=== PATIENT | female | born 1955 | race Caucasian/White ===

== ENCOUNTER 2019-02-12 00:05 | Inpatient (IN) | payer BC, MEDICARE ==
[~2019-02-12] VITALS: Ht 170.2 cm; Wt 57.2 kg
[2019-02-12 15:10] VITALS: BP 127/69
[2019-02-12] MEDS ORDERED: ASPI81TA50 PO (15:52)
[2019-02-12] MEDS ORDERED: ESCITALOPRAM OX20 MG PO (15:52)
[2019-02-12] MEDS ORDERED: DIAZ5ORA PO (15:52)
[2019-02-12] MEDS ORDERED: OLAN20TA10 PO (15:52)
[2019-02-12] MEDS ORDERED: DONE10TA7 PO (15:52)
[2019-02-12] MEDS ORDERED: MEMA10TA PO (15:52)
[2019-02-12] MEDS ORDERED: METHYL SALICYLATE/MENTHOL TOPICAL OINTMENT 57GM TUBE. TP PRN (16:00)
[2019-02-12] MEDS ORDERED: MAGNESIUM HYDROXIDE 2,400 MG/30 ML ORAL.SUSP. PO PRN (16:00)
[2019-02-12] MEDS ORDERED: MAG HYDROX/AL HYDROX/SIMETH 30 ML ORAL.SUSP PO PRN (16:00)
[2019-02-12] MEDS ORDERED: diazePAM 2 MG TABLET PO PRN (16:00)
[2019-02-12] MEDS ORDERED: FLU VAX QS 2019-20 (36MOS+)/PF 0.5 ML SYRINGE. VAX IM ONE (16:15)
--- NOTE | 2019-02-12 17:33 | EKG ---
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
[2019-02-12] MEDS: MEMANTINE 10 MG TABLET. PO SCH (20:08)
[2019-02-12] MEDS: DONEPEZIL HCL 10 MG TABLET PO SCH (20:08)
--- NOTE | 2019-02-12 21:45 | PDOC ---
Exam Note: Romeo Note: Please also refer to the separate dictated note~for this date of service dictated separately. Discussed the patient with Nursing staff reviewed the chart.~Reviewed interim history and current functioning. Reviewed vital signs,~Labs/ Radiology~and current medications noted below. Continue current treatment with the changes noted in the dictated addendum note Assessment: Vital Signs/I&O: Vital Signs Date Time Temp Pulse Resp B/P (MAP) Pulse Ox O2 Delivery O2 Flow Rate FiO2 02/12/19 15:10 98.8 78 18 127/69 (88) 96 Current Medications: Meds: Current Medications Medications (Trade) Dose Ordered Sig/Kenia Route PRN Reason Start Time Stop Time Status Last Admin Dose Admin Donepezil HCl (Aricept) 10 mg HS PO 02/12/19 21:00 02/12/19 20:08 Memantine (Namenda) 10 mg BID PO 02/12/19 21:00 02/12/19 20:08 Olanzapine (ZyPREXA ZYDIS) 20 mg QHS PO 02/12/19 21:00 02/12/19 20:08 Influenza Virus Vaccine Quadrival (Afluria Quad 2019-20 (3yr Up) Syringe) 0.5 ml ONCE ONCE VAX IM 02/12/19 16:15 02/12/19 16:40 DC 02/12/19 18:17 I have reviewed the current psychotropics carefully including drug interactions. Risk benefit ratio favors no change other than as noted in my dictated progress note. Diagnosis: Problems: (1) Anxiety disorder (2) Dementia in Alzheimer's disease with delusions (3) Dementia in Alzheimer's disease with depression (4) Dementia, vascular, with delusions (5) Dementia, vascular, with depression (6) Impulse control disorder JERI MAE MD Feb 12, 2019 21:45
[2019-02-13 05:58] VITALS: BP 92/58
[2019-02-13 07:09] LABS: ALBUMIN 3.2 g/dL (3.4-5.0); CALCIUM 8.7 mg/dL (8.5-10.1); CREATININE 0.8 mg/dL (0.6-1.0); GFR 72.7; POTASSIUM 3.4 mmol/L (3.5-5.1); TOTAL BILIRUBIN 0.5 mg/dL (0.2-1.0); TOTAL PROTEIN 6.3 g/dL (6.4-8.2)
[2019-02-13 07:10] LABS: BASO % 0 % (0-3); EOS % 0 % (0-3); HEMATOCRIT 34.7 % (36.0-47.0); HEMOGLOBIN 11.7 g/dL (12.0-15.5); LYMPH # 0.8 x10^3/uL (1.0-4.8); LYMPH % 17 % (24-48); MEAN CORPUSCULAR HEMOGLOBIN 31 pg (25-35); MEAN CORPUSCULAR HGB CONC 34 g/dL (31-37); MEAN CORPUSCULAR VOLUME 92 fL (79-100); MONO # 0.4 x10^3/uL (0.0-1.1); MONO % 10 % (0-9); NEUT # 3.2 x10^3uL (1.8-7.7); NEUT % 72 % (31-73); PLATELET COUNT 180 x10^3/uL (140-400); RED BLOOD COUNT 3.76 x10^6/uL (3.50-5.40); RED CELL DISTRIBUTION WIDTH 13.2 % (11.5-14.5); WHITE BLOOD COUNT 4.4 x10^3/uL (4.0-11.0)
[2019-02-13] MEDS: ASPIRIN ENTERIC COATED 81 MG TABLET.DR. PO SCH (08:01)
[2019-02-13] MEDS: MEMANTINE 10 MG TABLET. PO SCH ×2 (08:01→19:58)
[2019-02-13] MEDS ORDERED: CITALOPRAM 20 MG TABLET. PO SCH (09:00)
[2019-02-13 13:31] LABS: THYROID STIM HORMONE (TSH) 1.616 uIU/mL (0.358-3.740)
--- NOTE | 2019-02-13 13:41 | PN ---
DATE: PROGRESS NOTE This late entry, 02/12/2019, covers elements not covered in my initial note. IDENTIFYING DATA: The patient is a 63-year-old female referred to us from the Emergency Room at [facility], where she presented around midnight of the previous night and I was called at midnight to evaluate her for admission to our unit. She has a history of early onset dementia, lives at home with her , has had increasing agitation against her who is her primary caregiver. She has been irritable, constantly yelling, having marked insomnia, not eating or drinking, extremely restless and has failed outpatient psychiatric interventions. She is a danger to herself due to not eating and drinking and the behaviors that were totally out of control and having failed outpatient psychiatric interventions. She is referred for inpatient psychiatric stabilization. CHIEF COMPLAINT: "No." HISTORY OF PRESENT ILLNESS: The patient has a history of dementia, probably Alzheimer's with delusion, depression. She has been living at home with her and he has tried to maintain her at home until recently. As noted, she has appeared more depressed, psychotic, agitated, aggressive, disruptive, not eating, drinking. No clear history of bipolar disorder or homicidal ideation. She has a passive suicidal ideation noted above. PAST PSYCHIATRIC HISTORY: As above. The patient was diagnosed with Alzheimer dementia in 2010. MEDICAL HISTORY: Positive for recurrent UTIs and UA was positive in the ER, given 1 dose of Monurol. She has a history of dehydration and electrolyte imbalance. The patient was on hospice care, but that was recently discontinued. The patient has been started on 2 liters normal saline. DIET: Regular finger foods. ALLERGIES: Negative. Ambulates with total care in a ____ FAMILY HISTORY: Noncontributory. SOCIAL HISTORY: No history of alcohol, drug abuse, physical, sexual or elder abuse. She is not known to be a perpetrator. REACTION TO HOSPITALIZATION: The patient oblivious of this. ASSETS: Supportive . CURRENT PSYCHOTROPICS: Namenda 10 mg b.i.d., Lexapro 20 mg a day, Aricept 10 mg at bedtime, Zyprexa 20 mg at bedtime, Valium p.r.n. MENTAL STATUS EXAMINATION: The patient was seen individually evening of 02/12/2019. She is lying in bed, anxious, restless, oriented to herself, not very verbal. Insight, judgment, recent and remote memory, attention, concentration, fund of knowledge poor, consistent with her diagnosis. IMPRESSION: Major neurocognitive disorder, Alzheimer's with delusion, depression, behavioral disturbance; anxiety disorder, unspecified; impulse control disorder, unspecified. Rest as above. PLAN: Admit to Geropsychiatry Unit at [facility]. I will see the patient daily individually from a psychiatric standpoint. Medical followup per Dr. Mukherjee. We will continue the patient on her current psychotropics. Observe baseline, then adjust as clinically indicated. Estimated length of stay 10-12 days. DISPOSITION PLANS: Back home or perhaps more appropriately to penitentiary setting. JERI MAE MD DR: GERMAN/darwin JOB#: [id number] / [id number]
--- NOTE | 2019-02-13 15:38 | PDOC2 ---
CONSULT Date of Admission DATE: 02/13/19 TIME: 15:34 Reason for Consult: medical management History of Present Illness The patient is a 63-year-old female with early onset Alzheimer's dementia, depression. She has history of UTIs. She comes to the senior behavioral unit after being transferred from [facility]. She lives with her who is her primary caregiver. Apparently the patient had been more aggressive, irritable, confused, with insomnia, not eating or drinking well, mostly history is obtained from prior records as the patient cannot provide any history. Apparently the patient had been hospice at home. This will need to be revisited with the Past Medical History Alzheimer's disease, depression, recurrent UTIs Social History the patient is , no history of smoking/drinking could be provided Current Medications Current Medications Donepezil HCl (Aricept) 10 mg HS PO Last administered on 02/12/19at 20:08; Start 02/12/19 at 21:00 Memantine (Namenda) 10 mg BID PO Last administered on 02/13/19at 08:01; Start 02/12/19 at 21:00 Diazepam (Valium) 4 mg PRN Q4HRS PRN PO ANXIETY; Start 02/12/19 at 16:00 Citalopram Hydrobromide (CeleXA) 40 mg DAILY PO Last administered on 02/13/19at 08:01; Start 02/13/19 at 09:00 Olanzapine (ZyPREXA ZYDIS) 20 mg QHS PO Last administered on 02/12/19at 20:08; Start 02/12/19 at 21:00 Aspirin (Aspirin Enteric Coated) 81 mg DAILY PO Last administered on 02/13/19at 08:01; Start 02/13/19 at 09:00 Acetaminophen (Tylenol) 650 mg PRN Q6HRS PRN PO PAIN / TEMP; Start 02/12/19 at 16:00 Multi-Ingredient Ointment (Analgesic [place]) 1 casimiro PRN QID PRN TP MUSCLE PAIN; Start 02/12/19 at 16:00 Al Hydroxide/Mg Hydroxide (Mylanta Plus Xs) 15 ml PRN AFTMEALHC PRN PO DYSPEPSIA; Start 02/12/19 at 16:00 Magnesium Hydroxide (Milk Of Magnesia) 2,400 mg PRN QHS PRN PO CONSTIPATION; Start 02/12/19 at 16:00 Influenza Virus Vaccine Quadrival (Afluria Quad 2019-20 (3yr Up) Syringe) 0.5 ml ONCE ONCE VAX IM Last administered on 02/12/19at 18:17; Start 02/12/19 at 16:15; Stop 02/12/19 at 16:40; Status DC Active Scripts Active Reported Diazepam Oral Conc (Diazepam) 5 Mg/1 Ml Oral.conc 4 Mg PO PRN Q6HRS PRN Olanzapine Odt (Olanzapine) 20 Mg Tab.rapdis 20 Mg PO HS Aspir-Low (Aspirin) 81 Mg Tablet.dr 1 Tab PO DAILY Donepezil Hcl 10 Mg Tablet 1 Tab PO HS Escitalopram Oxalate 20 Mg Tablet 1 Tab PO DAILY Namenda (Memantine Hcl) 10 Mg Tablet 1 Tab PO BID Allergies: Coded Allergies: No Known Drug Allergies (Unverified , 02/12/19) Review of System review of systems could not be provided due to her psychiatric illness Physical Exam Awake, completely confused, cannot answer even her name PERRLA, EOMI, appears slightly dry Regular rate and rhythm Clear to auscultation bilaterally Positive bowel sounds, nontender, nondistended Cranial nerves could not be tested at this time, appears to move all extremities however neurological exam was very limited No rashes No edema VITALS Vital Signs Date Time Temp Pulse Resp B/P (MAP) Pulse Ox O2 Delivery O2 Flow Rate FiO2 02/13/19 05:58 98.4 56 16 92/58 (69) 98 Labs Laboratory Tests Test 02/13/19 06:30 White Blood Count 4.4 x10^3/uL (4.0-11.0) Red Blood Count 3.76 x10^6/uL (3.50-5.40) Hemoglobin 11.7 g/dL (12.0-15.5) Hematocrit 34.7 % (36.0-47.0) Mean Corpuscular Volume 92 fL (79-100) Mean Corpuscular Hemoglobin 31 pg (25-35) Mean Corpuscular Hemoglobin Concent 34 g/dL (31-37) Red Cell Distribution Width 13.2 % (11.5-14.5) Platelet Count 180 x10^3/uL (140-400) Neutrophils (%) (Auto) 72 % (31-73) Lymphocytes (%) (Auto) 17 % (24-48) Monocytes (%) (Auto) 10 % (0-9) Eosinophils (%) (Auto) 0 % (0-3) Basophils (%) (Auto) 0 % (0-3) Neutrophils # (Auto) 3.2 x10^3uL (1.8-7.7) Lymphocytes # (Auto) 0.8 x10^3/uL (1.0-4.8) Monocytes # (Auto) 0.4 x10^3/uL (0.0-1.1) Eosinophils # (Auto) 0.0 x10^3/uL (0.0-0.7) Basophils # (Auto) 0.0 x10^3/uL (0.0-0.2) Sodium Level 144 mmol/L (136-145) Potassium Level 3.4 mmol/L (3.5-5.1) Chloride Level 108 mmol/L (98-107) Carbon Dioxide Level 27 mmol/L (21-32) Anion Gap 9 (6-14) Blood Urea Nitrogen 9 mg/dL (7-20) Creatinine 0.8 mg/dL (0.6-1.0) Estimated GFR (Cockcroft-Gault) 72.7 BUN/Creatinine Ratio 11 (6-20) Glucose Level 100 mg/dL (70-99) Calcium Level 8.7 mg/dL (8.5-10.1) Magnesium Level 2.0 mg/dL (1.8-2.4) Iron Level 29 ug/dL (50-170) Total Iron Binding Capacity 256 ug/dL (250-450) Iron Saturation 11 % (15-34) Total Bilirubin 0.5 mg/dL (0.2-1.0) Aspartate Amino Transf (AST/SGOT) 26 U/L (15-37) Alanine Aminotransferase (ALT/SGPT) 17 U/L (14-59) Alkaline Phosphatase 86 U/L (46-116) Total Protein 6.3 g/dL (6.4-8.2) Albumin 3.2 g/dL (3.4-5.0) Albumin/Globulin Ratio 1.0 (1.0-1.7) Triglycerides Level 54 mg/dL (0-150) Cholesterol Level 141 mg/dL (0-200) LDL Cholesterol, Calculated 91 mg/dL (0-100) VLDL Cholesterol, Calculated 10 mg/dL (0-40) Non-HDL Cholesterol Calculated 101 mg/dL (0-129) HDL Cholesterol 40 mg/dL (40-60) Cholesterol/HDL Ratio 3.0 25-Hydroxy Vitamin D Total 25.4 ng/mL (30-100) Thyroid Stimulating Hormone (TSH) 1.616 uIU/mL (0.358-3.740) Treponema pallidum Antibody Nonreactive (Nonreactive) Assessment/Plan Severe Alzheimer's dementia -Per primary team-psychiatry -Psychiatric medications per psychiatry -Ordered B12 level UTI- treated at [facility] with fosfomycin 1 -Await final results of urine culture Dysphagia due to anatomical/medical reasons versus psychiatric -Recommend speech evaluation -If family wants to be more aggressive, a CAT scan or MRI of the head might be needed -The patient may need a feeding tube Mild hypokalemia -Potassium chloride for replacement today Mild protein calorie malnutrition -Encourage oral intake Goals of CARE -Patient had been hospice at home, this will need to be revisited with the if the patient cannot take good oral intake MEGHAN DE LA CRUZ MD Feb 13, 2019 15:38
[2019-02-13 16:40] VITALS: BP 126/75
[2019-02-13 19:12] LABS: THYROXINE 6.3 ug/dL (4.5-12.0)
[2019-02-13] MEDS: MIRTAZAPINE 7.5 MG TABLET. PO SCH (19:58)
[2019-02-13] MEDS: DONEPEZIL HCL 10 MG TABLET PO SCH (19:58)
--- NOTE | 2019-02-13 22:18 | PDOC ---
Exam Note: Romeo Note: Please also refer to the separate dictated note~for this date of service dictated separately.~Patient seen individually. Discussed the patient with Nursing staff reviewed the chart.~Reviewed interim history and current functioning. Reviewed vital signs,~Labs/ Radiology~and current medications noted below. Continue current treatment with the changes noted in the dictated addendum note Assessment: Vital Signs/I&O: Vital Signs Date Time Temp Pulse Resp B/P (MAP) Pulse Ox O2 Delivery O2 Flow Rate FiO2 02/13/19 16:40 97.9 51 16 126/75 (92) 97 I & O 02/12/19 02/12/19 02/13/19 14:59 22:59 06:59 Intake Total 240 ml 0 ml Balance 240 ml 0 ml Labs: Laboratory Tests Test 02/13/19 06:30 White Blood Count 4.4 x10^3/uL (4.0-11.0) Red Blood Count 3.76 x10^6/uL (3.50-5.40) Hemoglobin 11.7 g/dL (12.0-15.5) L Hematocrit 34.7 % (36.0-47.0) L Mean Corpuscular Volume 92 fL (79-100) Mean Corpuscular Hemoglobin 31 pg (25-35) Mean Corpuscular Hemoglobin Concent 34 g/dL (31-37) Red Cell Distribution Width 13.2 % (11.5-14.5) Platelet Count 180 x10^3/uL (140-400) Neutrophils (%) (Auto) 72 % (31-73) Lymphocytes (%) (Auto) 17 % (24-48) L Monocytes (%) (Auto) 10 % (0-9) H Eosinophils (%) (Auto) 0 % (0-3) Basophils (%) (Auto) 0 % (0-3) Neutrophils # (Auto) 3.2 x10^3uL (1.8-7.7) Lymphocytes # (Auto) 0.8 x10^3/uL (1.0-4.8) L Monocytes # (Auto) 0.4 x10^3/uL (0.0-1.1) Eosinophils # (Auto) 0.0 x10^3/uL (0.0-0.7) Basophils # (Auto) 0.0 x10^3/uL (0.0-0.2) Sodium Level 144 mmol/L (136-145) Potassium Level 3.4 mmol/L (3.5-5.1) L Chloride Level 108 mmol/L (98-107) H Carbon Dioxide Level 27 mmol/L (21-32) Anion Gap 9 (6-14) Blood Urea Nitrogen 9 mg/dL (7-20) Creatinine 0.8 mg/dL (0.6-1.0) Estimated GFR (Cockcroft-Gault) 72.7 BUN/Creatinine Ratio 11 (6-20) Glucose Level 100 mg/dL (70-99) H Calcium Level 8.7 mg/dL (8.5-10.1) Magnesium Level 2.0 mg/dL (1.8-2.4) Iron Level 29 ug/dL (50-170) L Total Iron Binding Capacity 256 ug/dL (250-450) Iron Saturation 11 % (15-34) L Total Bilirubin 0.5 mg/dL (0.2-1.0) Aspartate Amino Transferase (AST) 26 U/L (15-37) Alanine Aminotransferase (ALT) 17 U/L (14-59) Alkaline Phosphatase 86 U/L (46-116) Total Protein 6.3 g/dL (6.4-8.2) L Albumin 3.2 g/dL (3.4-5.0) L Albumin/Globulin Ratio 1.0 (1.0-1.7) Triglycerides Level 54 mg/dL (0-150) Cholesterol Level 141 mg/dL (0-200) LDL Cholesterol, Calculated 91 mg/dL (0-100) VLDL Cholesterol, Calculated 10 mg/dL (0-40) Non-HDL Cholesterol Calculated 101 mg/dL (0-129) HDL Cholesterol 40 mg/dL (40-60) Cholesterol/HDL Ratio 3.0 25-Hydroxy Vitamin D Total 25.4 ng/mL (30-100) L Thyroid Stimulating Hormone (TSH) 1.616 uIU/mL (0.358-3.740) Thyroxine (T4) 6.3 ug/dL (4.5-12.0) Total Triiodothyronine (TT3) 91 ng/dL (71-180) Treponema pallidum Antibody Nonreactive (Nonreactive) Current Medications: Meds: Current Medications Medications (Trade) Dose Ordered Sig/Kenia Route PRN Reason Start Time Stop Time Status Last Admin Dose Admin Citalopram Hydrobromide (CeleXA) 40 mg DAILY PO 02/13/19 09:00 02/13/19 18:34 DC 02/13/19 08:01 Aspirin (Aspirin Enteric Coated) 81 mg DAILY PO 02/13/19 09:00 02/13/19 08:01 Olanzapine (ZyPREXA ZYDIS) 2.5 mg PRN Q2HR PRN PO PSYCHOSIS 02/13/19 16:00 02/13/19 18:09 Mirtazapine (Remeron) 7.5 mg QHS PO 02/13/19 21:00 02/13/19 19:58 I have reviewed the current psychotropics carefully including drug interactions. Risk benefit ratio favors no change other than as noted in my dictated progress note. Diagnosis: Problems: (1) Anxiety disorder (2) Dementia in Alzheimer's disease with delusions (3) Dementia in Alzheimer's disease with depression (4) Dementia, vascular, with delusions (5) Dementia, vascular, with depression (6) Impulse control disorder JERI MAE MD Feb 13, 2019 22:18
[2019-02-14 00:07] LABS: HEMOGLOBIN A1C 5.3 % (4.8-5.6)
[2019-02-14 05:59] VITALS: BP 126/79
[2019-02-14] MEDS: ASPIRIN ENTERIC COATED 81 MG TABLET.DR. PO SCH (08:34)
[2019-02-14] MEDS: MEMANTINE 10 MG TABLET. PO SCH ×2 (08:34→20:06)
[2019-02-14] MEDS: SERTRALINE 50 MG TABLET. PO SCH (08:36)
[2019-02-14] MEDS: ACETAMINOPHEN 325 MG TABLET PO PRN (11:14)
[2019-02-14 16:10] VITALS: BP 106/44
[2019-02-14] MEDS: DONEPEZIL HCL 10 MG TABLET PO SCH (20:06)
[2019-02-14] MEDS: MIRTAZAPINE 7.5 MG TABLET. PO SCH (20:06)
--- NOTE | 2019-02-14 21:32 | PDOC ---
Exam Note: Romeo Note: Please also refer to the separate dictated note~for this date of service dictated separately.~Patient seen individually. Discussed the patient with Nursing staff reviewed the chart.~Reviewed interim history and current functioning. Reviewed vital signs,~Labs/ Radiology~and current medications noted below. Continue current treatment with the changes noted in the dictated addendum note Assessment: Vital Signs/I&O: Vital Signs Date Time Temp Pulse Resp B/P (MAP) Pulse Ox O2 Delivery O2 Flow Rate FiO2 02/14/19 16:10 97.5 95 18 106/44 (64) 95 I & O 02/13/19 02/13/19 02/14/19 14:59 22:59 06:59 Intake Total 200 ml 60 ml Balance 200 ml 60 ml Current Medications: Meds: Current Medications Medications (Trade) Dose Ordered Sig/Kenia Route PRN Reason Start Time Stop Time Status Last Admin Dose Admin Sertraline HCl (Zoloft) 50 mg DAILY PO 02/14/19 09:00 02/14/19 08:36 I have reviewed the current psychotropics carefully including drug interactions. Risk benefit ratio favors no change other than as noted in my dictated progress note. Diagnosis: Problems: (1) Anxiety disorder (2) Dementia in Alzheimer's disease with delusions (3) Dementia in Alzheimer's disease with depression (4) Dementia, vascular, with delusions (5) Dementia, vascular, with depression (6) Impulse control disorder JERI MAE MD Feb 14, 2019 21:32
[2019-02-15 05:49] VITALS: BP 99/59
--- NOTE | 2019-02-15 06:42 | PN ---
DATE: 02/13/2019 PSYCHIATRIC PROGRESS NOTE This late entry, 02/13, covers elements not covered in my initial note. SUBJECTIVE: Per report from CHRIS Ibrahim, patient remains confused, slept 7 hours previous night. Oral intake is poor, ate nothing for lunch or breakfast. She has been speaking sing song, babbling and then intermittently screaming, hallucinating. REVIEW OF SYSTEMS: Ambulation impaired, lying in bed. No CV, , pulmonary, eye, ENT system symptoms on review. Reliability poor. MENTAL STATUS EXAM: Oriented to herself. Insight, judgment, recent and remote memory, attention, concentration, fund of knowledge poor, consistent with her diagnosis. IMPRESSION: Major neurocognitive disorder; Alzheimer, vascular with delusion; depression; behavioral disturbance; anxiety disorder, unspecified; impulse control disorder, unspecified; status post urinary tract infection. Rest unchanged. PLAN: We will go ahead and drop her Lexapro from 20 mg a day down to 10 mg a day. Stop the Valium p.r.n. Change the Zyprexa 20 mg at bedtime scheduled to Zyprexa 2.5 mg q. 2 hours p.r.n. psychosis, agitation, max 10 mg in 24 hours. Start Remeron 7.5 mg at bedtime in place of Zyprexa to help with her insomnia, anxiety and mood symptoms. We will make further changes as clinically indicated including considering Depakote as a mood stabilizer. MAN Lucio MAE MD DR: GERMAN/darwin JOB#: [id number] / [id number]
[2019-02-15] MEDS: SERTRALINE 50 MG TABLET. PO SCH (07:23)
[2019-02-15] MEDS: ASPIRIN ENTERIC COATED 81 MG TABLET.DR. PO SCH (07:23)
[2019-02-15] MEDS: MEMANTINE 10 MG TABLET. PO SCH ×2 (07:23→20:10)
[2019-02-15] MEDS: HYDROCORTISONE 2.5% TOPICAL OINTMENT 30GM TUBE. TP SCH ×2 (07:23→21:00)
[2019-02-15] MEDS: LIDOCAINE (700MG/PATCH) PATCH. TD SCH (08:49)
--- NOTE | 2019-02-15 14:33 | HP ---
ADMIT DATE: PROGRESS NOTE This late entry, 02/12/2019, covers elements not covered in my initial note. IDENTIFYING DATA: The patient is a 63-year-old female referred to us from the Emergency Room at [facility], where she presented around midnight of the previous night and I was called at midnight to evaluate her for admission to our unit. She has a history of early onset dementia, lives at home with her , has had increasing agitation against her who is her primary caregiver. She has been irritable, constantly yelling, having marked insomnia, not eating or drinking, extremely restless and has failed outpatient psychiatric interventions. She is a danger to herself due to not eating and drinking and the behaviors that were totally out of control and having failed outpatient psychiatric interventions. She is referred for inpatient psychiatric stabilization. CHIEF COMPLAINT: "No." HISTORY OF PRESENT ILLNESS: The patient has a history of dementia, probably Alzheimer's with delusion, depression. She has been living at home with her and he has tried to maintain her at home until recently. As noted, she has appeared more depressed, psychotic, agitated, aggressive, disruptive, not eating, drinking. No clear history of bipolar disorder or homicidal ideation. She has a passive suicidal ideation noted above. PAST PSYCHIATRIC HISTORY: As above. The patient was diagnosed with Alzheimer dementia in 2010. MEDICAL HISTORY: Positive for recurrent UTIs and UA was positive in the ER, given 1 dose of Monurol. She has a history of dehydration and electrolyte imbalance. The patient was on hospice care, but that was recently discontinued. The patient has been started on 2 liters normal saline. DIET: Regular finger foods. ALLERGIES: Negative. Ambulates with total care in a ____ FAMILY HISTORY: Noncontributory. SOCIAL HISTORY: No history of alcohol, drug abuse, physical, sexual or elder abuse. She is not known to be a perpetrator. REACTION TO HOSPITALIZATION: The patient oblivious of this. ASSETS: Supportive . CURRENT PSYCHOTROPICS: Namenda 10 mg b.i.d., Lexapro 20 mg a day, Aricept 10 mg at bedtime, Zyprexa 20 mg at bedtime, Valium p.r.n. MENTAL STATUS EXAMINATION: The patient was seen individually evening of 02/12/2019. She is lying in bed, anxious, restless, oriented to herself, not very verbal. Insight, judgment, recent and remote memory, attention, concentration, fund of knowledge poor, consistent with her diagnosis. IMPRESSION: Major neurocognitive disorder, Alzheimer's with delusion, depression, behavioral disturbance; anxiety disorder, unspecified; impulse control disorder, unspecified. Rest as above. PLAN: Admit to Geropsychiatry Unit at [facility]. I will see the patient daily individually from a psychiatric standpoint. Medical followup per Dr. Mukherjee. We will continue the patient on her current psychotropics. Observe baseline, then adjust as clinically indicated. Estimated length of stay 10-12 days. DISPOSITION PLANS: Back home or perhaps more appropriately to [place]. JERI MAE MD DR: GERMAN/nts JOB#: [id number] / [id number]
[2019-02-15 17:06] VITALS: BP 116/76
[2019-02-15 19:21] LABS: BACTERIA,URINE 0 /HPF (0-FEW); BILIRUBIN,URINE NEG (NEG); CLARITY,URINE HAZY; COLOR,URINE AMBER; GLUCOSE,URINE NEG (NEG); NITRITE,URINE POS (NEG); RBC,URINE 0 /HPF (0-2); SQUAMOUS EPITHELIAL CELL,UR OCC /LPF; UROBILINOGEN,URINE 2 mg/dL (0.2 mg/dL)
--- NOTE | 2019-02-15 19:50 | PN ---
DATE: SUBJECTIVE: The patient was ____ agitation against primary caregivers, irritability, yelling, insomnia, not eating and drinking, and restless. The patient was having severe pain to her shoulders, right and left with decreased range of motion, unable to lift them above the horizontal plane. She was noted to have a rash underneath her lip just above the chin area, probably some form of dermatitis. Other than that, the patient had no major complaints except for the pain in her shoulders. OBJECTIVE: VITAL SIGNS: Otherwise, blood pressure is 126/80, respiratory rate 24, pulse 90, afebrile. NEUROLOGIC: The patient was alert and just concerned with her pain that she was having in her shoulders. The patient's ____ was unremarkable there. 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 PLAN: The patient will be adjusted on her medications and hopefully get some relief to the pain in her shoulders as well as being treated for her dermatitis underneath her lower lip area. SLY HERNANDEZ MD DR: JOVANNA/darwin JOB#: [id number] / [id number]
[2019-02-15] MEDS: DONEPEZIL HCL 10 MG TABLET PO SCH (20:10)
[2019-02-15] MEDS: MIRTAZAPINE 7.5 MG TABLET. PO SCH (20:10)
--- NOTE | 2019-02-15 21:52 | PDOC ---
Exam Note: Romeo Note: Please also refer to the separate dictated note~for this date of service dictated separately.~Patient seen individually. Discussed the patient with Nursing staff reviewed the chart.~Reviewed interim history and current functioning. Reviewed vital signs,~Labs/ Radiology~and current medications noted below. Continue current treatment with the changes noted in the dictated addendum note Assessment: Vital Signs/I&O: Vital Signs Date Time Temp Pulse Resp B/P (MAP) Pulse Ox O2 Delivery O2 Flow Rate FiO2 02/15/19 17:06 98.2 95 16 116/76 (89) 95 I & O 02/14/19 02/14/19 02/15/19 15:00 23:00 07:00 Intake Total 480 ml 60 ml Balance 480 ml 60 ml Labs: Laboratory Tests Test 02/15/19 17:15 Urine Collection Type U cath Urine Color Tessa Urine Clarity Hazy Urine pH 6.0 Urine Specific [place] 1.025 Urine Protein Trace (NEG-TRACE) Urine Glucose (UA) Neg mg/dL (NEG) Urine Ketones (Stick) Trace mg/dL (NEG) Urine Blood Neg (NEG) Urine Nitrite Pos (NEG) Urine Bilirubin Neg (NEG) Urine Urobilinogen Dipstick 2 mg/dL (0.2 mg/dL) Urine Leukocyte Esterase Neg (NEG) Urine RBC 0 /HPF (0-2) Urine WBC 1-4 /HPF (0-4) Urine Squamous Epithelial Cells Occ /LPF Urine Bacteria 0 /HPF (0-FEW) Urine Mucus Mod /LPF Current Medications: Meds: Current Medications Medications (Trade) Dose Ordered Sig/Kenia Route PRN Reason Start Time Stop Time Status Last Admin Dose Admin Lidocaine (Lidoderm) 1 patch DAILY TD 02/15/19 09:00 02/15/19 08:49 Hydrocortisone (Hytone) 1 casimiro BID TP 02/15/19 09:00 02/15/19 21:00 I have reviewed the current psychotropics carefully including drug interactions. Risk benefit ratio favors no change other than as noted in my dictated progress note. Diagnosis: Problems: (1) Anxiety disorder (2) Dementia in Alzheimer's disease with delusions (3) Dementia in Alzheimer's disease with depression (4) Dementia, vascular, with delusions (5) Dementia, vascular, with depression (6) Impulse control disorder (7) Protein calorie malnutrition (8) Hypokalemia JERI MAE MD Feb 15, 2019 21:52
[2019-02-16 06:05] VITALS: BP 123/82
[2019-02-16] MEDS: ASPIRIN ENTERIC COATED 81 MG TABLET.DR. PO SCH (07:54)
[2019-02-16] MEDS: SERTRALINE 50 MG TABLET. PO SCH (07:54)
[2019-02-16] MEDS: LIDOCAINE (700MG/PATCH) PATCH. TD SCH (07:54)
[2019-02-16] MEDS: MEMANTINE 10 MG TABLET. PO SCH ×2 (07:55→19:32)
[2019-02-16] MEDS: DIVALPROEX 125 MG CAP.SPRINK PO SCH ×2 (07:59→17:04)
[2019-02-16] MEDS: HYDROCORTISONE 2.5% TOPICAL OINTMENT 30GM TUBE. TP SCH ×2 (08:00→19:32)
[2019-02-16 16:29] VITALS: BP 129/92
[2019-02-16] MEDS ORDERED: DIVALPROEX 125 MG CAP.SPRINK PO SCH (17:00)
[2019-02-16] MEDS: MIRTAZAPINE 7.5 MG TABLET. PO SCH (19:32)
[2019-02-16] MEDS: DONEPEZIL HCL 10 MG TABLET PO SCH (19:32)
--- NOTE | 2019-02-16 21:42 | PDOC ---
Exam Note: Romeo Note: Please also refer to the separate dictated note~for this date of service dictated separately.~Patient seen individually. Discussed the patient with Nursing staff reviewed the chart.~Reviewed interim history and current functioning. Reviewed vital signs,~Labs/ Radiology~and current medications noted below. Continue current treatment with the changes noted in the dictated addendum note Assessment: Vital Signs/I&O: Vital Signs Date Time Temp Pulse Resp B/P (MAP) Pulse Ox O2 Delivery O2 Flow Rate FiO2 02/16/19 16:29 97.9 83 18 129/92 (104) 98 I & O 02/15/19 02/15/19 02/16/19 15:00 23:00 07:00 Intake Total 480 ml 680 ml 120 ml Balance 480 ml 680 ml 120 ml Current Medications: Meds: Current Medications Medications (Trade) Dose Ordered Sig/Kenia Route PRN Reason Start Time Stop Time Status Last Admin Dose Admin Divalproex Sodium (Depakote Sprinkles) 125 mg 0900,1700 PO 02/16/19 09:00 02/16/19 17:04 I have reviewed the current psychotropics carefully including drug interactions. Risk benefit ratio favors no change other than as noted in my dictated progress note. Diagnosis: Problems: (1) Anxiety disorder (2) Dementia in Alzheimer's disease with delusions (3) Dementia in Alzheimer's disease with depression (4) Dementia, vascular, with delusions (5) Dementia, vascular, with depression (6) Impulse control disorder JERI MAE MD Feb 16, 2019 21:42
--- NOTE | 2019-02-16 22:01 | PN ---
DATE: 02/14/2019 PSYCHIATRIC PROGRESS NOTE This late entry 02/14/2019 covers elements not covered in my initial note. SUBJECTIVE: I met with the patient evening of 02/14/2019. According to CHRIS Negro, the patient slept reasonably previous night. She was agitated earlier in the day, received Zyprexa and Tylenol at 11:06 a.m. REVIEW OF SYSTEMS: Ambulation impaired. No CV, , pulmonary, eye, ENT system symptoms on review. Reliability poor. MENTAL STATUS EXAMINATION: Oriented to herself. Insight, judgment, recent and remote memory, attention, concentration, fund of knowledge poor, consistent with her diagnosis mentioned in my initial note. PLAN: No change from initial note. MAN Lucio MAE MD DR: GERMAN/adrwin JOB#: [id number] / [id number]
--- NOTE | 2019-02-16 22:06 | PN ---
DATE: 02/15/2019 PSYCHIATRIC PROGRESS NOTE This late entry 02/15/2019 covers elements not covered in my initial note. SUBJECTIVE: I met with the patient evening of 02/15/2019 and staffed at a treatment team meeting in the morning. The patient's appetite 25-50%, sleeping average 6 hours. Continues to be confused, intermittent agitation, yelling, disruptive. She has an accent and staff reports she is originally from [facility]. REVIEW OF SYSTEMS: Ambulation impaired. No CV, , pulmonary, eye, ENT system symptoms on review. Reliability poor. MENTAL STATUS EXAMINATION: Oriented to herself. Insight, judgment, recent and remote memory, attention, concentration, fund of knowledge poor, consistent with her diagnosis mentioned in my initial note. IMPRESSION: Major neurocognitive disorder, Alzheimer, vascular with delusion, depression, behavioral disturbance; anxiety disorder, unspecified; impulse control disorder, unspecified; status post urinary tract infection. PLAN: Continue Zoloft 50 [address] day in [address] of the Lexapro 10 mg a day, Namenda 10 mg b.i.d., Aricept 10 mg a day, though I am not sure what benefit these 2 might have. We will discontinue it later. Maintain Remeron 7.5 mg at bedtime. Start Depakote Sprinkles 125 mg 9 a.m., 5:00 p.m. Check CBC, CMP, valproic acid level in 3 days. Adjust further as clinically indicated. MAN Lucio MAE MD DR: GERMAN/darwin JOB#: [id number] / [id number]
[2019-02-17 05:57] VITALS: BP 109/74
[2019-02-17] MEDS: ASPIRIN ENTERIC COATED 81 MG TABLET.DR. PO SCH (07:45)
[2019-02-17] MEDS: MEMANTINE 10 MG TABLET. PO SCH ×2 (07:46→20:44)
[2019-02-17] MEDS: DIVALPROEX 125 MG CAP.SPRINK PO SCH ×2 (07:46→17:08)
[2019-02-17] MEDS: SERTRALINE 50 MG TABLET. PO SCH (07:46)
[2019-02-17] MEDS: LIDOCAINE (700MG/PATCH) PATCH. TD SCH (07:48)
[2019-02-17] MEDS: HYDROCORTISONE 2.5% TOPICAL OINTMENT 30GM TUBE. TP SCH ×2 (08:00→20:44)
[2019-02-17 15:49] VITALS: BP 124/82
[2019-02-17] MEDS: DONEPEZIL HCL 10 MG TABLET PO SCH (20:44)
[2019-02-17] MEDS: MIRTAZAPINE 7.5 MG TABLET. PO SCH (20:44)
--- NOTE | 2019-02-17 21:56 | PDOC ---
Exam Note: Romeo Note: Please also refer to the separate dictated note~for this date of service dictated separately.~Patient seen individually. Discussed the patient with Nursing staff reviewed the chart.~Reviewed interim history and current functioning. Reviewed vital signs,~Labs/ Radiology~and current medications noted below. Continue current treatment with the changes noted in the dictated addendum note Assessment: Vital Signs/I&O: Vital Signs Date Time Temp Pulse Resp B/P (MAP) Pulse Ox O2 Delivery O2 Flow Rate FiO2 02/17/19 15:49 97.8 61 20 124/82 (96) 98 Room Air I & O 02/16/19 02/16/19 02/17/19 15:00 23:00 07:00 Intake Total 720 ml 240 ml Balance 720 ml 240 ml Current Medications: I have reviewed the current psychotropics carefully including drug interactions. Risk benefit ratio favors no change other than as noted in my dictated progress note. Diagnosis: Problems: (1) Anxiety disorder (2) Dementia in Alzheimer's disease with delusions (3) Dementia in Alzheimer's disease with depression (4) Dementia, vascular, with delusions (5) Dementia, vascular, with depression (6) Impulse control disorder (7) Protein calorie malnutrition (8) Hypokalemia JERI MAE MD Feb 17, 2019 21:56
[2019-02-18 06:00] VITALS: BP 133/80
[2019-02-18] MEDS: SERTRALINE 50 MG TABLET. PO SCH (07:38)
[2019-02-18] MEDS: DIVALPROEX 125 MG CAP.SPRINK PO SCH ×2 (07:38→17:09)
[2019-02-18] MEDS: MEMANTINE 10 MG TABLET. PO SCH ×2 (07:38→20:45)
[2019-02-18] MEDS: ASPIRIN ENTERIC COATED 81 MG TABLET.DR. PO SCH (07:38)
[2019-02-18] MEDS: LIDOCAINE (700MG/PATCH) PATCH. TD SCH (07:39)
[2019-02-18] MEDS: HYDROCORTISONE 2.5% TOPICAL OINTMENT 30GM TUBE. TP SCH ×2 (07:40→20:45)
[2019-02-18 16:26] VITALS: BP 135/85
[2019-02-18] MEDS: DONEPEZIL HCL 10 MG TABLET PO SCH (20:45)
[2019-02-18] MEDS: MIRTAZAPINE 7.5 MG TABLET. PO SCH (20:45)
--- NOTE | 2019-02-19 04:42 | PN ---
DATE: 02/18/2019 SUBJECTIVE: The patient was seen today, met with the staff, chart reviewed and also covering for Dr. Aguilar. The patient continues to have problems. She is on wheelchair. The patient apparently had a recent UTI. The patient also has visual impairment. The patient is constantly agitated, demanding and yelling. The patient is not able to follow directions. OBSERVATION: VITAL SIGNS: Temperature 96.3, blood pressure 90/67, pulse 88, respirations 16, O2 sat 98%. GENERAL: Slept about 7 hours last night. CURRENT MEDICATIONS: Reviewed. Currently on Depakote 500 mg at night, olanzapine 5 mg b.i.d., which was started recently, is also on mirtazapine 15 mg at night, Keppra 500 mg b.i.d., BuSpar 15 mg b.i.d., trazodone 50 mg at night. LABORATORY DATA: The patient's lab reviewed. The patient's ammonia level was 51. Otherwise, no change from previous levels. ASSESSMENT: 1. Bipolar disorder type 1 with psychotic features. 2. Major neurocognitive disorder, multifactorial with delusions, depression, behavioral disturbances, and anxiety disorder, unspecified. PLAN: Continue monitoring her behaviors and plan for her to return to the residential. PATRICK CARRILLO MD DR: LEIGH ANN/darwin JOB#: [id number] / [id number]
[2019-02-19 05:37] VITALS: BP 112/76
[2019-02-19 06:44] LABS: BASO % 1 % (0-3); EOS # 0.2 x10^3/uL (0.0-0.7); EOS % 4 % (0-3); HEMATOCRIT 36.1 % (36.0-47.0); HEMOGLOBIN 12.1 g/dL (12.0-15.5); LYMPH # 1.2 x10^3/uL (1.0-4.8); LYMPH % 29 % (24-48); MEAN CORPUSCULAR HEMOGLOBIN 31 pg (25-35); MEAN CORPUSCULAR HGB CONC 34 g/dL (31-37); MEAN CORPUSCULAR VOLUME 92 fL (79-100); MONO # 0.4 x10^3/uL (0.0-1.1); MONO % 8 % (0-9); NEUT # 2.4 x10^3uL (1.8-7.7); NEUT % 58 % (31-73); PLATELET COUNT 231 x10^3/uL (140-400); RED CELL DISTRIBUTION WIDTH 13.3 % (11.5-14.5); WHITE BLOOD COUNT 4.2 x10^3/uL (4.0-11.0)
[2019-02-19 06:57] LABS: ALBUMIN/GLOBULIN RATIO 0.9 (1.0-1.7); ALK PHOS 80 U/L (46-116); ALT (SGPT) 24 U/L (14-59); ANION GAP 7 (6-14); AST (SGOT) 19 U/L (15-37); BLOOD UREA NITROGEN 26 mg/dL (7-20); BUN/CREATININE RATIO 37 (6-20); CALCIUM 8.8 mg/dL (8.5-10.1); CARBON DIOXIDE 30 mmol/L (21-32); CHLORIDE 108 mmol/L (98-107); CREATININE 0.7 mg/dL (0.6-1.0); GFR 84.8; GLUCOSE 93 mg/dL (70-99); SODIUM 145 mmol/L (136-145); TOTAL BILIRUBIN 0.1 mg/dL (0.2-1.0); TOTAL PROTEIN 6.4 g/dL (6.4-8.2)
[2019-02-19 06:59] LABS: VAL ACID 21 mcg/mL (50-100)
[2019-02-19] MEDS: SERTRALINE 50 MG TABLET. PO SCH (07:48)
[2019-02-19] MEDS: DIVALPROEX 125 MG CAP.SPRINK PO SCH ×2 (07:48→16:47)
[2019-02-19] MEDS: MEMANTINE 10 MG TABLET. PO SCH ×2 (07:48→19:21)
[2019-02-19] MEDS: ASPIRIN ENTERIC COATED 81 MG TABLET.DR. PO SCH (07:48)
[2019-02-19] MEDS: HYDROCORTISONE 2.5% TOPICAL OINTMENT 30GM TUBE. TP SCH ×2 (07:50→21:00)
[2019-02-19] MEDS: LIDOCAINE (700MG/PATCH) PATCH. TD SCH (07:50)
--- NOTE | 2019-02-19 15:32 | PN ---
DATE: 02/18/2019 SUBJECTIVE: The patient was seen today, met with the staff, chart reviewed and also covering for Dr. Aguilar. Staff reports no problems. The patient continues to exhibit some mood swings, irritability and inability to take care of her needs, needing supervision. OBSERVATION: VITAL SIGNS: Temperature 97.9, blood pressure 132/80, pulse 73, respirations 16, O2 sat 96%. GENERAL: Slept about 6 hours last night. Her appetite decreased. MEDICATIONS: Reviewed. Currently, she is on Depakote 125 mg twice a day, Zoloft 50 mg daily, mirtazapine 7.5 mg at night, Namenda 10 mg b.i.d. and Aricept 10 mg at night. The patient also evaluated for hospice care. ASSESSMENT: Major neurocognitive disorder, most likely Alzheimer's with delusions and depression and behavioral disturbances; anxiety disorder, unspecified. PLAN: The patient to be evaluated with regard to her ability to return home and also whether she needs placement, preferably a fpc. PATRICK CARRILLO MD DR: LEIGH ANN/darwin JOB#: [id number] / [id number]
[2019-02-19 16:10] VITALS: BP 113/61
[2019-02-19] MEDS: DONEPEZIL HCL 10 MG TABLET PO SCH (19:21)
[2019-02-19] MEDS: MIRTAZAPINE 7.5 MG TABLET. PO SCH (19:21)
[2019-02-20 05:15] VITALS: BP 124/84
[2019-02-20] MEDS: DIVALPROEX 125 MG CAP.SPRINK PO SCH ×2 (07:33→16:45)
[2019-02-20] MEDS: ASPIRIN ENTERIC COATED 81 MG TABLET.DR. PO SCH (07:33)
[2019-02-20] MEDS: SERTRALINE 50 MG TABLET. PO SCH (07:33)
[2019-02-20] MEDS: LIDOCAINE (700MG/PATCH) PATCH. TD SCH (07:34)
[2019-02-20] MEDS: MEMANTINE 10 MG TABLET. PO SCH ×2 (07:34→20:31)
[2019-02-20] MEDS: HYDROCORTISONE 2.5% TOPICAL OINTMENT 30GM TUBE. TP SCH ×2 (07:35→20:34)
--- NOTE | 2019-02-20 09:22 | PN ---
DATE: 02/19/2019 SUBJECTIVE: The patient was seen today, met with the staff, chart reviewed and also covering for Dr. Aguilar. The staff reports no major behavior problems. She is able to feed herself. The patient also has indwelling catheter. The patient's lab showed BUN of 26. The patient's Depakote level was 21. The patient denies of any other major medical issues at this time. OBSERVATION: VITAL SIGNS: Temperature 97.3, blood pressure 112/76, pulse 69, respirations 16, O2 sat 95%. Slept about 7 hours last night. The patient's appetite improved. MEDICATIONS: The patient's current medications include Depakote 500 mg at night, mirtazapine 5 mg b.i.d.. The patient is on Zoloft 50 mg daily, mirtazapine 7.5 mg at night. She is on olanzapine 2.5 mg q. 2 hours p.r.n., Namenda 10 mg b.i.d., Aricept 10 mg at night and also Depakote 125 mg twice a day. The patient is not having any side effects to medications. ASSESSMENT: 1. Major neurocognitive disorder, most likely Alzheimer's with delusions, depression and behavioral disturbances. 2. Anxiety disorder, unspecified. PLAN: To continue with the treatment. Awaiting placement. PATRICK CARRILLO MD DR: LEIGH ANN/darwin JOB#: [id number] / [id number]
[2019-02-20 16:24] VITALS: BP 116/79
[2019-02-20] MEDS: DONEPEZIL HCL 10 MG TABLET PO SCH (20:31)
[2019-02-20] MEDS: MIRTAZAPINE 7.5 MG TABLET. PO SCH (20:31)
--- NOTE | 2019-02-20 21:52 | PDOC ---
Exam Note: Romeo Note: Please also refer to the separate dictated note~for this date of service dictated separately.~Patient seen individually. Discussed the patient with Nursing staff reviewed the chart.~Reviewed interim history and current functioning. Reviewed vital signs,~Labs/ Radiology~and current medications noted below. Continue current treatment with the changes noted in the dictated addendum note Assessment: Vital Signs/I&O: Vital Signs Date Time Temp Pulse Resp B/P (MAP) Pulse Ox O2 Delivery O2 Flow Rate FiO2 02/20/19 16:24 97.5 62 16 116/79 (91) 97 02/20/19 05:15 Room Air I & O 02/19/19 02/19/19 02/20/19 15:00 23:00 07:00 Intake Total 720 ml 600 ml Output Total 850 ml Balance 720 ml -250 ml Current Medications: I have reviewed the current psychotropics carefully including drug interactions. Risk benefit ratio favors no change other than as noted in my dictated progress note. Diagnosis: Problems: (1) Anxiety disorder (2) Dementia in Alzheimer's disease with delusions (3) Dementia in Alzheimer's disease with depression (4) Dementia, vascular, with delusions (5) Dementia, vascular, with depression (6) Impulse control disorder JERI MAE MD Feb 20, 2019 21:52
--- NOTE | 2019-02-21 01:12 | PN ---
DATE: 02/16/2019 PSYCHIATRIC PROGRESS NOTE This late entry 02/16/2019 covers elements not covered in my initial note. SUBJECTIVE: I met with the patient evening of 02/16/2019. Per Felecia RN, patient slept 6-3/4 hours previous night. She has been retaining urine and did get a straight catheterization at night and in the morning and then a Wilder was placed. We will defer to Dr. Miranda/Dr. Mukherjee. She is confused, tearful, talks "gibberish" per nursing report. REVIEW OF SYSTEMS: No CV, , pulmonary, eye, ENT system symptoms on review. Reliability poor. Gait unsteady. Anita lift Broda chair. MENTAL STATUS EXAM: Oriented to herself. Insight, judgment, recent and remote memory, attention, concentration, fund of knowledge poor, consistent with her diagnosis mentioned in my initial note. PLAN: No change from initial note. MAN Lucio MAE MD DR: GERMAN/darwin JOB#: [id number] / [id number]
--- NOTE | 2019-02-21 01:50 | PN ---
DATE: 02/17/2019 PSYCHIATRIC PROGRESS NOTE This late entry 02/17/2019 covers elements not covered in my initial note. SUBJECTIVE: I met with the patient in the morning. According to Nikkie RN, the patient slept 7-1/4 hours previous night. She did have a bath and fed herself breakfast in the morning, which is an improvement. Speech is disorganized. UA has reflux to culture. REVIEW OF SYSTEMS: Ambulation impaired and Anita lift Broda chair. No CV, , PULMONARY, EYE, ENT system symptoms on review. Reliability poor. MENTAL STATUS EXAM: Oriented to herself. Insight, judgment, recent and remote memory, attention, concentration, fund of knowledge poor, consistent with her diagnosis mentioned in my initial note. PLAN: No change from initial note. Treat the UTI once this returns. Rest unchanged. MAN Lucio MAE MD DR: GERMAN/darwin JOB#: [id number] / [id number]
[2019-02-21 05:52] VITALS: BP 119/79
[2019-02-21 06:09] LABS: BASO % 1 % (0-3); EOS # 0.1 x10^3/uL (0.0-0.7); EOS % 2 % (0-3); HEMATOCRIT 36.9 % (36.0-47.0); HEMOGLOBIN 12.5 g/dL (12.0-15.5); LYMPH # 1.5 x10^3/uL (1.0-4.8); LYMPH % 28 % (24-48); MEAN CORPUSCULAR HEMOGLOBIN 31 pg (25-35); MEAN CORPUSCULAR HGB CONC 34 g/dL (31-37); MEAN CORPUSCULAR VOLUME 92 fL (79-100); MONO # 0.4 x10^3/uL (0.0-1.1); MONO % 8 % (0-9); NEUT # 3.3 x10^3uL (1.8-7.7); NEUT % 61 % (31-73); PLATELET COUNT 252 x10^3/uL (140-400); RED BLOOD COUNT 3.99 x10^6/uL (3.50-5.40); RED CELL DISTRIBUTION WIDTH 12.9 % (11.5-14.5); WHITE BLOOD COUNT 5.4 x10^3/uL (4.0-11.0)
[2019-02-21 06:15] LABS: CALCIUM 9.1 mg/dL (8.5-10.1); CREATININE 0.8 mg/dL (0.6-1.0); GFR 72.7; POTASSIUM 4.3 mmol/L (3.5-5.1)
[2019-02-21] MEDS: HYDROCORTISONE 2.5% TOPICAL OINTMENT 30GM TUBE. TP SCH ×2 (09:00→20:59)
[2019-02-21] MEDS: LIDOCAINE (700MG/PATCH) PATCH. TD SCH (09:28)
[2019-02-21] MEDS: SERTRALINE 50 MG TABLET. PO SCH (09:29)
[2019-02-21] MEDS: DIVALPROEX 125 MG CAP.SPRINK PO SCH ×2 (09:29→18:25)
[2019-02-21] MEDS: MEMANTINE 10 MG TABLET. PO SCH ×2 (09:29→20:59)
[2019-02-21] MEDS: ASPIRIN ENTERIC COATED 81 MG TABLET.DR. PO SCH (09:29)
[2019-02-21 16:26] VITALS: BP 128/85
[2019-02-21] MEDS: DONEPEZIL HCL 10 MG TABLET PO SCH (20:59)
[2019-02-21] MEDS: MIRTAZAPINE 7.5 MG TABLET. PO SCH (20:59)
--- NOTE | 2019-02-21 21:58 | PDOC ---
Exam Note: Romeo Note: Please also refer to the separate dictated note~for this date of service dictated separately.~Patient seen individually. Discussed the patient with Nursing staff reviewed the chart.~Reviewed interim history and current functioning. Reviewed vital signs,~Labs/ Radiology~and current medications noted below. Continue current treatment with the changes noted in the dictated addendum note Assessment: Vital Signs/I&O: Vital Signs Date Time Temp Pulse Resp B/P (MAP) Pulse Ox O2 Delivery O2 Flow Rate FiO2 02/21/19 16:26 97.7 62 16 128/85 (99) 96 02/20/19 05:15 Room Air I & O 02/20/19 02/20/19 02/21/19 15:00 23:00 07:00 Intake Total 720 ml 720 ml Balance 720 ml 720 ml Labs: Laboratory Tests Test 02/21/19 05:55 White Blood Count 5.4 x10^3/uL (4.0-11.0) Red Blood Count 3.99 x10^6/uL (3.50-5.40) Hemoglobin 12.5 g/dL (12.0-15.5) Hematocrit 36.9 % (36.0-47.0) Mean Corpuscular Volume 92 fL (79-100) Mean Corpuscular Hemoglobin 31 pg (25-35) Mean Corpuscular Hemoglobin Concent 34 g/dL (31-37) Red Cell Distribution Width 12.9 % (11.5-14.5) Platelet Count 252 x10^3/uL (140-400) Neutrophils (%) (Auto) 61 % (31-73) Lymphocytes (%) (Auto) 28 % (24-48) Monocytes (%) (Auto) 8 % (0-9) Eosinophils (%) (Auto) 2 % (0-3) Basophils (%) (Auto) 1 % (0-3) Neutrophils # (Auto) 3.3 x10^3uL (1.8-7.7) Lymphocytes # (Auto) 1.5 x10^3/uL (1.0-4.8) Monocytes # (Auto) 0.4 x10^3/uL (0.0-1.1) Eosinophils # (Auto) 0.1 x10^3/uL (0.0-0.7) Basophils # (Auto) 0.0 x10^3/uL (0.0-0.2) Sodium Level 137 mmol/L (136-145) Potassium Level 4.3 mmol/L (3.5-5.1) Chloride Level 103 mmol/L (98-107) Carbon Dioxide Level 29 mmol/L (21-32) Anion Gap 5 (6-14) L Blood Urea Nitrogen 20 mg/dL (7-20) Creatinine 0.8 mg/dL (0.6-1.0) Estimated GFR (Cockcroft-Gault) 72.7 Glucose Level 93 mg/dL (70-99) Calcium Level 9.1 mg/dL (8.5-10.1) Current Medications: I have reviewed the current psychotropics carefully including drug interactions. Risk benefit ratio favors no change other than as noted in my dictated progress note. Diagnosis: Problems: (1) Anxiety disorder (2) Dementia in Alzheimer's disease with delusions (3) Dementia in Alzheimer's disease with depression (4) Dementia, vascular, with delusions (5) Dementia, vascular, with depression (6) Impulse control disorder JERI MAE MD Feb 21, 2019 21:58
--- NOTE | 2019-02-22 04:29 | PN ---
DATE: 02/20/2019 PSYCHIATRIC PROGRESS NOTE This late entry 02/20/2019 covers the elements not covered in my initial note. SUBJECTIVE: I met with the patient in the evening of 02/20/2019. Reviewed information from Dr. Todd who covered for me for the prior 2 days. The patient slept 7 hours previous night. She is able to feed herself, remains extremely confused, but more pleasant, smiling as I met with her, takes her meds crushed in ice cream. She talks in a sing song manner. Most communication is yes and no. Social service staff are coordinating placement for her since she is unable to return home as the was unable to provide the care for her level of functioning at this time. Apparently, the insurance company is not authorizing further days and I will be doing a peer review on 02/21/2019. REVIEW OF SYSTEMS: She is not forthcoming when questioned, but ambulation impaired, in Broda chair. No CV, , pulmonary, eye, ENT system symptoms on review. MENTAL STATUS EXAM: Oriented to herself. Insight, judgment, recent and remote memory, attention, concentration, fund of knowledge poor, consistent with her diagnoses. IMPRESSION: Major neurocognitive disorder, Alzheimer, vascular with delusion, depression, behavioral disturbance; anxiety disorder, unspecified; impulse control disorder, unspecified; urinary tract infection. PLAN: Continue current psychotropics. Namenda and Aricept may need to be stopped later since they probably have little benefit at her stage of dementia. We will maintain Zoloft along with Zyprexa p.r.n., Remeron scheduled and Depakote 125 mg twice a day, may need to adjust this to help with her mood stability and agitation. JERI MAE MD DR: GERMAN/darwin JOB#: [id number] / [id number]
[2019-02-22 06:30] VITALS: BP 112/77
[2019-02-22 07:46] LABS: HEMOGLOBIN 12.6 g/dL (12.0-15.5); RED BLOOD COUNT 4.12 x10^6/uL (3.50-5.40); RED CELL DISTRIBUTION WIDTH 13.3 % (11.5-14.5); WHITE BLOOD COUNT 4.7 x10^3/uL (4.0-11.0)
[2019-02-22 07:54] LABS: CALCIUM 9.3 mg/dL (8.5-10.1); CREATININE 0.7 mg/dL (0.6-1.0); GFR 84.8; POTASSIUM 4.1 mmol/L (3.5-5.1)
[2019-02-22] MEDS: HYDROCORTISONE 2.5% TOPICAL OINTMENT 30GM TUBE. TP SCH ×2 (09:00→20:25)
[2019-02-22] MEDS ORDERED: CHOLECALCIFEROL (VITAMIN D3) 50,000 UNIT CAPSULE PO SCH (09:00)
[2019-02-22] MEDS: ASPIRIN ENTERIC COATED 81 MG TABLET.DR. PO SCH (09:59)
[2019-02-22] MEDS: LIDOCAINE (700MG/PATCH) PATCH. TD SCH (10:00)
[2019-02-22] MEDS: DIVALPROEX 125 MG CAP.SPRINK PO SCH ×2 (10:00→18:36)
[2019-02-22] MEDS: SERTRALINE 50 MG TABLET. PO SCH (10:00)
[2019-02-22] MEDS: MEMANTINE 10 MG TABLET. PO SCH ×2 (10:00→20:25)
[2019-02-22 17:11] LABS: BILIRUBIN,URINE NEG (NEG); CLARITY,URINE TURBID; COLOR,URINE BROWN; GLUCOSE,URINE NEG (NEG); NITRITE,URINE NEG (NEG); RBC,URINE >40 /HPF (0-2); UROBILINOGEN,URINE 1 mg/dL (0.2 mg/dL)
[2019-02-22 17:12] LABS: BACTERIA,URINE FEW /HPF (0-FEW); WBC,URINE RARE /HPF (0-4)
[2019-02-22 17:35] VITALS: BP 114/76
--- NOTE | 2019-02-22 19:26 | RAD ---
Exam: CT abdomen and pelvis without contrast INDICATION: Hematuria TECHNIQUE: Sequential axial images through the abdomen and pelvis obtained without IV contrast. Sagittal and coronal reformatted images were reconstructed from the axial data and reviewed. Comparisons: None FINDINGS: Heart size is normal. No pericardial effusion. Strandy opacities at the lung bases bilaterally, likely representing atelectasis. No pleural effusion. Evaluation of solid abdominal organs is limited secondary to noncontrast technique. Liver, spleen, pancreas, gallbladder and adrenals are unremarkable. No perinephric inflammation or hydronephrosis. No renal or ureteral calculi are identified. Bladder is decompressed not well evaluated. Uterus is not enlarged. No abnormal adnexal mass. Large amount of stool is noted within the rectum, with mild adjacent wall thickening. The remainder of the large and small bowel are unremarkable without evidence for obstruction. No free intra-abdominal air or fluid. Appendix is normal. No obstruction. Abdominal aorta has a normal course and caliber. No enlarged abdominal lymph nodes are identified. No suspicious osseous lesions or acute fractures. IMPRESSION: 1. No renal or ureteral calculi. No evidence for obstructive uropathy. 2. Large amount stool in the rectum with mild associated wall thickening and mild adjacent perirectal fat stranding. Findings are favored represent stercoral colitis Exposure: One or more of the following in the visualized dose reduction techniques were utilized for this examination: 1. Automated exposure control 2. Adjustment of the MA and/or KV according to patient size 3. Use of iterative of reconstructive technique Electronically signed by: Merlene Jackson MD (02/22/2019 7:24 PM) [facility]
[2019-02-22] MEDS: MIRTAZAPINE 7.5 MG TABLET. PO SCH (20:25)
[2019-02-22] MEDS: DONEPEZIL HCL 10 MG TABLET PO SCH (20:25)
--- NOTE | 2019-02-22 21:58 | PDOC ---
Exam Note: Romeo Note: Please also refer to the separate dictated note~for this date of service dictated separately.~Patient seen individually. Discussed the patient with Nursing staff reviewed the chart.~Reviewed interim history and current functioning. Reviewed vital signs,~Labs/ Radiology~and current medications noted below. Continue current treatment with the changes noted in the dictated addendum note Assessment: Vital Signs/I&O: Vital Signs Date Time Temp Pulse Resp B/P (MAP) Pulse Ox O2 Delivery O2 Flow Rate FiO2 02/22/19 17:35 97.8 72 16 114/76 (89) 98 Room Air I & O 02/21/19 02/21/19 02/22/19 15:00 23:00 07:00 Intake Total 240 ml 600 ml Output Total 1150 ml Balance 240 ml -550 ml Labs: Laboratory Tests Test 02/22/19 06:56 02/22/19 16:30 White Blood Count 4.7 x10^3/uL (4.0-11.0) Red Blood Count 4.12 x10^6/uL (3.50-5.40) Hemoglobin 12.6 g/dL (12.0-15.5) Hematocrit 38.0 % (36.0-47.0) Mean Corpuscular Volume 92 fL (79-100) Mean Corpuscular Hemoglobin 31 pg (25-35) Mean Corpuscular Hemoglobin Concent 33 g/dL (31-37) Red Cell Distribution Width 13.3 % (11.5-14.5) Platelet Count 272 x10^3/uL (140-400) Sodium Level 141 mmol/L (136-145) Potassium Level 4.1 mmol/L (3.5-5.1) Chloride Level 104 mmol/L (98-107) Carbon Dioxide Level 31 mmol/L (21-32) Anion Gap 6 (6-14) Blood Urea Nitrogen 27 mg/dL (7-20) H Creatinine 0.7 mg/dL (0.6-1.0) Estimated GFR (Cockcroft-Gault) 84.8 Glucose Level 91 mg/dL (70-99) Calcium Level 9.3 mg/dL (8.5-10.1) Urine Collection Type U cath Urine Color Brown Urine Clarity Turbid Urine pH >8.5 Urine Specific [place] 1.010 Urine Protein >100 mg/dl (NEG-TRACE) Urine Glucose (UA) Neg mg/dL (NEG) Urine Ketones (Stick) Neg mg/dL (NEG) Urine Blood Large (NEG) Urine Nitrite Neg (NEG) Urine Bilirubin Neg (NEG) Urine Urobilinogen Dipstick 1 mg/dL (0.2 mg/dL) Urine Leukocyte Esterase Trace (NEG) Urine RBC >40 /HPF (0-2) Urine WBC Rare /HPF (0-4) Urine Squamous Epithelial Cells None /LPF Urine Bacteria Few /HPF (0-FEW) Current Medications: Meds: Current Medications Medications (Trade) Dose Ordered Sig/Kenia Route PRN Reason Start Time Stop Time Status Last Admin Dose Admin Vitamin D (Vitamin D3) 50,000 unit WEEKLY PO 02/22/19 09:00 02/22/19 10:03 I have reviewed the current psychotropics carefully including drug interactions. Risk benefit ratio favors no change other than as noted in my dictated progress note. Diagnosis: Problems: (1) Anxiety disorder (2) Dementia in Alzheimer's disease with delusions (3) Dementia in Alzheimer's disease with depression (4) Dementia, vascular, with delusions (5) Dementia, vascular, with depression (6) Impulse control disorder JERI MAE MD Feb 22, 2019 21:58
[2019-02-22] MEDS ORDERED: ACET325T9 PO (23:00)
[2019-02-22] MEDS ORDERED: CHOL500016 PO (23:01)
[2019-02-22] MEDS ORDERED: DIVA500T2 PO (23:08)
[2019-02-22] MEDS ORDERED: LIDO700A21 TP (23:10)
[2019-02-22] MEDS ORDERED: HYDR28OI2 TP (23:10)
[2019-02-22] MEDS ORDERED: MAG30ORA2 PO (23:11)
[2019-02-22] MEDS ORDERED: MAGN2400 PO (23:12)
[2019-02-22] MEDS ORDERED: METH99.22 TP (23:13)
[2019-02-22] MEDS ORDERED: MIRT15TA3 PO (23:14)
[2019-02-22] MEDS ORDERED: OLAN5TAB9 PO (23:15)
[2019-02-22] MEDS ORDERED: SERT50TA PO (23:15)
[2019-02-23 05:37] VITALS: BP 112/71
[2019-02-23] MEDS: DIVALPROEX 125 MG CAP.SPRINK PO SCH ×2 (07:53→15:35)
[2019-02-23] MEDS: SERTRALINE 50 MG TABLET. PO SCH (07:53)
[2019-02-23] MEDS: ASPIRIN ENTERIC COATED 81 MG TABLET.DR. PO SCH (07:53)
[2019-02-23] MEDS: MEMANTINE 10 MG TABLET. PO SCH (07:53)
[2019-02-23] MEDS: LIDOCAINE (700MG/PATCH) PATCH. TD SCH (07:54)
[2019-02-23] MEDS: HYDROCORTISONE 2.5% TOPICAL OINTMENT 30GM TUBE. TP SCH (07:55)
[2019-02-23] MEDS ORDERED: CEFDINIR 300 MG CAPSULE PO SCH (09:00)
[2019-02-23] MEDS: ACETAMINOPHEN 325 MG TABLET PO PRN (09:57)
[2019-02-23 15:55] VITALS: BP 99/67
--- NOTE | 2019-02-23 21:37 | PDOC ---
Exam Note: Romeo Note: Please also refer to the separate dictated note~for this date of service dictated separately.~Patient seen individually. Discussed the patient with Nursing staff reviewed the chart.~Reviewed interim history and current functioning. Reviewed vital signs,~Labs/ Radiology~and current medications noted below. Continue current treatment with the changes noted in the dictated addendum note Assessment: Vital Signs/I&O: Vital Signs Date Time Temp Pulse Resp B/P (MAP) Pulse Ox O2 Delivery O2 Flow Rate FiO2 02/23/19 15:55 97.8 57 16 99/67 (78) 97 Room Air I & O 02/22/19 02/22/19 02/23/19 15:00 23:00 07:00 Intake Total 720 ml 360 ml 120 ml Output Total 700 ml 200 ml Balance 720 ml -340 ml -80 ml Current Medications: I have reviewed the current psychotropics carefully including drug interactions. Risk benefit ratio favors no change other than as noted in my dictated progress note. Diagnosis: Problems: (1) Anxiety disorder (2) Dementia in Alzheimer's disease with delusions (3) Dementia in Alzheimer's disease with depression (4) Dementia, vascular, with delusions (5) Dementia, vascular, with depression (6) Impulse control disorder JERI MAE MD Feb 23, 2019 21:37
--- NOTE | 2019-02-23 23:27 | DS ---
DATE OF DISCHARGE: 02/23/2019 PSYCHIATRIC PROGRESS NOTE REASON FOR ADMISSION: Please refer to the admission history for details. Briefly, the patient is a 63-year-old female admitted from home via the Emergency Room at [facility] after she presented there with her who is a primary caregiver at home consequent to her very significant dementia, Alzheimer's vascular. She has been constantly yelling, marked insomnia, not eating, drinking, restless, recently came off hospice. Behaviors were unmanageable at home, failed outpatient psychiatric interventions resulting in this referral. SIGNIFICANT FINDINGS AND CLINICAL COURSE: Following admission, the patient was seen daily individually by myself from a psychiatric standpoint. Medical follow up with Dr. Mukherjee. She was found to have a UTI at [facility] and treated. She is extremely confused with marked mood lability and she was on Zyprexa 20 mg at bedtime scheduled, but this was discontinued. She appeared depressed and seemed to stabilize on a combination of Zoloft 50 mg a day, Namenda 10 b.i.d., Aricept 10 mg a day, Zyprexa p.r.n., Depakote Sprinkles 125 mg twice a day, Remeron 7.5 mg at bedtime. Consideration may be given to stopping the Namenda and Aricept at a future date given the extent of her dementia. Gradually mood appeared to improve. She is pleasant, smiling, slightly confused, but not aggressive. REVIEW OF SYSTEMS: Prior to discharge, ambulation impaired, in wheelchair. No CV, , pulmonary, eye, ENT system symptoms on review. MENTAL STATUS EXAM: Oriented to herself. Insight, judgment, recent and remote memory, attention, concentration, fund of knowledge poor, consistent with her diagnosis. FINAL DIAGNOSES: Major neurocognitive disorder, Alzheimer, vascular with delusion, depression; behavioral disturbance; anxiety disorder, unspecified; impulse control disorder, unspecified. Rest unchanged from admission. DISCHARGE MEDICATIONS: Please refer to the [facility]AD. DISCHARGE FOLLOWUP: Outpatient psychiatric and medical followup as arranged. Time for discharge day management greater than 30 minutes. MAN Lucio MAE MD DR: GERMAN/darwin JOB#: [id number] / [id number]
--- NOTE | 2019-02-24 01:18 | PN ---
DATE: 02/21/2019 PSYCHIATRIC PROGRESS NOTE This late entry, 02/21, covers elements not covered in my initial note. SUBJECTIVE: I met with the patient evening of 02/21. According to CHRIS Negro, patient slept 6-3/4 hours previous night. She remains confused in her Broda chair, but more pleasant, singing out at times. There is blood in her urine. We will defer to Dr. Mukherjee. I had a message to call Dr. Radford for prior authorization for her ongoing inpatient hospitalization and I left a detailed message for Dr. Radford after we were not able to connect on the telephone. REVIEW OF SYSTEMS: Ambulation impaired. No CV, , pulmonary, eye system symptoms on review. Reliability poor. MENTAL STATUS EXAM: Oriented to herself. Insight, judgment, recent and remote memory, attention, concentration, fund of knowledge poor, consistent with her diagnoses. IMPRESSION: Major neurocognitive disorder; Alzheimer, vascular with delusion; depression; behavioral disturbance; anxiety disorder, unspecified; impulse control disorder, unspecified. PLAN: Continue current psychotropics, Namenda, Aricept, Depakote, Remeron, along with Zyprexa p.r.n. The scheduled Zyprexa 20 mg at bedtime has since been discontinued and we do not see an emergence of active psychosis or hallucinations. We will continue to monitor. I would like to adjust the Depakote somewhat further, but generally she is showing improvement stability for her agitation. JERI MAE MD DR: GERMAN/darwin JOB#: [id number] / [id number]
--- NOTE | 2019-02-24 01:21 | PN ---
DATE: 02/22/2019 PSYCHIATRIC PROGRESS NOTE This late entry 02/22/2019 covers the elements not covered in my initial note. SUBJECTIVE: I met with the patient in the evening of 02/22/2019 and staffed at a treatment team meeting with the entire team. The patient slept 6-3/4 hours. Appetite is 75%. She is confused, calm, cooperative with meds and assessment. Smiling, disorganized. There is blood in the urine. We will defer to Dr. Mukherjee. REVIEW OF SYSTEMS: No CV, , pulmonary, eye, ENT system symptoms on review. Gait unsteady, in Broda chair. MENTAL STATUS EXAM: Oriented to herself. Insight, judgment, recent and remote memory, attention, concentration, fund of knowledge poor, consistent with her diagnosis mentioned in my initial note. PLAN: No change from initial note. MAN Lucio MAE MD DR: GERMAN/darwin JOB#: [id number] / [id number]
== END 2019-02-23 16:00 | disposition home or self-care (01) | DRG 885 ==
LOC: GEROPSY 00:05 → UNDOADMIN 00:05 → GEROPSY 15:05
PROVIDERS: ADMIT Psychiatry & Neurology Psychiatry; ATTEND Psychiatry & Neurology Psychiatry
DX: F31.9 Bipolar disorder, unspecified (principal); E44.1 Mild protein-calorie malnutrition; N39.0 Urinary tract infection, site not specified; R45.851 Suicidal ideations; F01.51 Vascular dementia, unspecified severity, with behavioral disturbance; Z68.1 Body mass index [BMI] 19.9 or less, adult; G30.0 Alzheimer's disease with early onset; F41.9 Anxiety disorder, unspecified; F63.9 Impulse disorder, unspecified; R13.10 Dysphagia, unspecified; E87.6 Hypokalemia; G47.00 Insomnia, unspecified; L30.9 Dermatitis, unspecified; H54.7 Unspecified visual loss; M19.90 Unspecified osteoarthritis, unspecified site; Z79.899 Other long term (current) drug therapy; Z87.440 Personal history of urinary (tract) infections
CPT/HCPCS: 36415; 74176; 80048; 80053; 80061; 80164; 81001; 82306; 82607; 83036; 83540; 83550; 83735; 84436; 84443; 84480; 85025; 85027; 86592; 87086; 90471; 90686; 93005